=== PATIENT | male | born 1965 | race Caucasian/White ===

== ENCOUNTER → 2018-08-24 | Outpatient (CLI) | payer OTHER | LOC: M.CT 11:59 | DX: K57.30 Diverticulosis of large intestine without perforation or abscess without bleeding (principal); R10.32 Left lower quadrant pain ==

== ENCOUNTER → 2020-11-27 | Outpatient (CLI) | payer OTHER ==
--- NOTE | 2020-11-27 14:32 | 2DMMODE ---
[place] [address] 2 D/M-MODE ECHOCARDIOGRAM Name: TRAVISSKY Erica Room: [facility]#: [id number] Admission: 11/27/20 Attend Phys: Danielle Maharaj MD Discharge: Date of : 67 Date of Service: 11/27/20 1431 Report #: [id number] THIS REPORT FOR: cc: Danielle Maharaj MD, Lin W. MD Blick, David R. MD [facility] ~ APPROVED REPORT Study performed: 11/27/2020 13:03:26 EXAM: Comprehensive 2D, Doppler, and color-flow Echocardiogram Patient Location: Out-Patient BSA: 2.41 HR: 75 bpm BP: 130/90 mmHg Other Information Study Quality: Good Indications Dyspnea Hypertension/HDD 2D Dimensions IVSd: 12.62 (7-11mm) LVOT Diam: 20.92 (18-24mm) LVDd: 48.94 mm PWd: 11.51 (7-11mm) Ascending Ao: 30.13 (22-36mm) LVDs: 27.31 (25-40mm) Aortic Root: 31.46 mm Volumes Left Atrial Volume (Systole) LA ESV Index: 15.80 mL/m2 Aortic Valve AoV Peak Angel.: 1.15 m/s AO Peak Gr.: 5.28 mmHg LVOT Max P.64 mmHg AO Mean Gr.: 3.14 mmHg LVOT Mean P.28 mmHg LVOT Max V: 1.08 m/s AO V2 VTI: 20.40 cm LVOT Mean V: 0.69 m/s CRUZ (VTI): 3.17 cm2 LVOT V1 VTI: 18.84 [place] [address] 2 D/M-MODE ECHOCARDIOGRAM Name: SKY ROBLES Room: [facility]#: [id number] Admission: 11/27/20 Attend Phys: Danielle Maharaj MD Discharge: Date of : 67 Date of Service: 11/27/20 1431 Report #: [id number] E/A Ratio: 0.64 MV Decel. Time: 221.70 ms MV E Max Angel.: 0.47 m/s MV PHT: 64.29 ms MVA (PHT): 3.42 cm2 TDI E/Lateral E': 6.71 E/Medial E': 7.83 Medial E' Angel.: 0.06 m/s Lateral E' Angel.: 0.07 m/s Pulmonary Valve PV Peak Angel.: 0.92 m/s PV Peak Gr.: 3.41 mmHg Left Ventricle The left ventricle is normal size. There is normal LV segmental wall motion. Mild concentric left ventricular hypertrophy. Left ventricular systolic function is normal. The left ventricular ejection fraction is within the normal range. LVEF is 55-60%. Grade I - abnormal relaxation pattern. Right Ventricle The right ventricle is normal size. The right ventricular systolic function is normal. Atria The left atrium size is normal. The right atrium size is normal. Aortic Valve The Aortic valve is sclerotic. No aortic regurgitation is present. There is no aortic valvular stenosis. Mitral Valve The mitral valve is normal in structure. There is trace mitral valve regurgitation noted. No evidence of mitral valve stenosis. Tricuspid Valve The tricuspid valve is normal in structure. There is trace tricuspid valve regurgitation noted. Pulmonic Valve The pulmonary valve is normal in structure. There is no pulmonic valvular regurgitation[place] [address] 2 D/M-MODE ECHOCARDIOGRAM Name: SKY ROBLES Room: [facility]#: [id number] Admission: 11/27/20 Attend Phys: Danielle Maharaj MD Discharge: Date of : 67 Date of Service: 11/27/20 1431 Report #: [id number] The aortic root is normal in size. IVC is normal in size and collapses >50% with inspiration. Pericardium There is no pericardial effusion. <Conclusion> Mild concentric left ventricular hypertrophy. LVEF is 55-60%. The Aortic valve is sclerotic. <ELECTRONICALLY SIGNED> By: Arun Dominguez MD, [facility] 11/27/20 [id number] Arun Dominguez MD, [facility] /INF
== END ==
LOC: M.CRD 11:41
PROVIDERS: ATTEND Internal Medicine
DX: I35.0 Nonrheumatic aortic (valve) stenosis (principal); I10 Essential (primary) hypertension; E78.1 Pure hyperglyceridemia; Z68.36 Body mass index [BMI] 36.0-36.9, adult

== ENCOUNTER → 2021-10-14 | Outpatient (CLI) | payer OTHER | LOC: M.RAD 14:27 | PROVIDERS: ATTEND Registered Nurse Diabetes Educator | DX: R05.9 Cough, unspecified (principal) ==